=== PATIENT | female | born 1990 | race Caucasian/White ===

== ENCOUNTER 2017-07-31 14:25 | Day surgery (SDC) | payer BC ==
[~2017-07-31 14:25] MED LIST: CEFAZOLIN 2 GM/D5W RTU 2 GM/50 ML RTUPB IV PRN
[2017-07-31 14:40] LABS: APPEARANCE,URINE CLOUDY; BILIRUBIN,URINE NEGATIVE (NEGATIVE); GLUCOSE, URINE NEGATIVE (NEGATIVE); KETONES,URINE NEGATIVE (NEGATIVE); LEUKOCYTE ESTERASE,URINE NEGATIVE (NEGATIVE); NITRITE,URINE NEGATIVE (NEGATIVE); PROTEIN,URINE 30 mg/dL (NEGATIVE); URINE SPECIFIC GRAVITY 1.025; UROBILINOGEN,URINE NEGATIVE mg/dL (<2.0)
[2017-07-31 15:30] LABS: HEMATOCRIT 37.3 % (36.0-47.0); HEMOGLOBIN 12.9 g/dL (12.0-15.5); HGB HCT DIFFERENCE 1.4; MEAN CORPUSCULAR HEMOGLOBIN 28.8 pg (27.0-33.4); MEAN CORPUSCULAR HGB CONC 34.5 g/dL (32.0-36.0); MEAN CORPUSCULAR VOLUME 84 fl (80-97); RED BLOOD COUNT 4.47 10^6/uL (3.72-5.28); RED CELL DISTRIBUTION WIDTH 13.6 % (11.5-14.0); WHITE BLOOD COUNT 5.5 10^3/uL (4.0-10.5)
[2017-07-31 16:03] LABS: ANION GAP 13 (5-19); BLOOD UREA NITROGEN 10 mg/dL (7-20); CALCIUM 9.3 mg/dL (8.4-10.2); CARBON DIOXIDE 23 mmol/L (22-30); CHLORIDE 109 mmol/L (98-107); CREATININE RESULT 0.66 mg/dL (0.52-1.25); GLUCOSE 80 mg/dL (75-110); SODIUM 145.3 mmol/L (137-145)
[2017-07-31] MEDS ORDERED: ONDANSETRON HCL INJ/PF 4 MG/2 ML SDV ONE (16:04)
[2017-07-31] MEDS ORDERED: FENTANYL CITRATE INJ/PF 100 MCG/2 ML AMPUL ONE (16:04)
[2017-07-31] MEDS ORDERED: IBUPROFEN INJ 800 MG/8 ML VIAL IV ONE (16:04)
[2017-07-31] MEDS ORDERED: PROPOFOL INJ 200 MG/20 ML VIAL IV ONE (16:04)
[2017-07-31] MEDS ORDERED: HYDROMORPHONE HCL INJ/PF 2 MG/ML AMPULE ONE (16:04)
[2017-07-31] MEDS ORDERED: MIDAZOLAM 2 MG/2 ML INJ ONE (16:12)
[2017-07-31] MEDS ORDERED: FENTANYL CITRATE INJ/PF 100 MCG/2 ML AMPUL IV PRN ×3 (16:53)
[2017-07-31] MEDS ORDERED: PROMETHAZINE HCL INJ 25 MG/1 ML VIAL IV PRN (16:53)
[2017-07-31] MEDS ORDERED: MEPERIDINE HCL/PF INJ 25 MG/1 ML DISP.SYRIN IV PRN (16:53)
[2017-07-31] MEDS ORDERED: DIPHENHYDRAMINE HCL 50 MG/ML VIAL IV PRN (16:53)
[2017-07-31] MEDS ORDERED: BUPIVACAINE HCL 0.5 % INJ/PF 30 ML SDV ONE (17:06)
[2017-07-31] MEDS ORDERED: ONDANSETRON HCL INJ/PF 4 MG/2 ML SDV IV PRN (17:28)
[2017-07-31] MEDS ORDERED: OXYCODONE-ACETAMINOPHEN 5-325 MG TABLET PO PRN (17:28)
--- NOTE | 2017-07-31 17:28 | Operative Report ---
Operative Report DATE OF SURGERY: 07/31/17 PREOPERATIVE DIAGNOSIS: LEFT thumb intra-articular phalanx fracture POSTOPERATIVE DIAGNOSIS: LEFT thumb intra-articular phalanx fracture OPERATION: Closed reduction percutaneous pinning LEFT thumb intra-articular phalanx fracture SURGEON: TRE BEYER ANESTHESIA: GA COMPLICATIONS: None ESTIMATED BLOOD LOSS: Minimal PROCEDURE: Indication for above procedure: 26-year-old female who injured her left thumb when he got a great when he got caught on her horses rope. It caused a twisting injury. Patient notable pain and swelling at the time. She was seen at the emergency room where x-rays demonstrated a fracture. Upon follow-up with me repeat radiographs which demonstrated intra-articular proximal phalanx fracture. Given diastases and alignment I recommended operative intervention. Risks and benefits were explained to the patient of both operative and nonoperative intervention. After discussing the risks and benefits the joint decision was made to proceed with operative treatment. Procedure In Detail: Patient was seen and evaluated in the preoperative holding area. The LEFT upper extremity was initialized and marked. Patient received 2g of Ancef IV for bacterial prophylaxis. Patient was taken back to the operative room where transferred to the operative table and placed under general anesthesia. Once they were adequately anesthetized a nonsterile tourniquet was placed on the upper extremity. A surgical team debriefing was performed ensuring all instrumentation was available, the surgical procedure was discussed with possible concerns reviewed. The upper extremity was prepped with chlorhexidine and alcohol and draped in a sterile fashion. A timeout was done identifying correct patient, procedure and extremity everyone in attendance agree with this and verbalized no concerns. The extremity was exsanguinated the tourniquet was inflated to 250 mmHg. Reduction was performed utilizing a tenaculum. Once adequate reduction was obtained a 0.034 K wire was placed into the fragment which was the volar ulnar corner of the distal aspect of the proximal phalanx. I confirmed that was within the fracture segment by using a K wire as a joystick. Once I got adequate reduction this was secured into the far cortex. There is quaker of the alignment no evidence of intra-articular step-off. To further provide stability to the fragment I then placed a 0.045 K wire transarticular along the DIP joint which controlled radial and ulnar angulation provide further stability to the fracture fragment. The K wires were then cut below the skin. Multiple C arm views were obtained confirming adequate reduction of the fracture and no instability. A digital block was performed utilizing 10 cc of 0.5% Marcaine without epinephrine. Pin sites were covered with Xeroform and 4 x 4's patient was placed in a plaster splint anterior and posterior to provide further stability. Sponge counts, instrument counts, needle counts counts were correct. Patient was then awoken from anesthesia. Transferred from the operating room table to the operating room stretcher. There was no intraoperative complications patient tolerated procedure well stable to PACU. Postoperative plan: Patient will be set up for occupational therapy to be fitted for a thermoplastic splint stability at the DIP joint leaving the MP joint free. She will follow-up with me in 2 weeks we will obtain radiographs at that time. Plan will be removal of the transarticular pin at 4 weeks and then remove of fragment in 6 weeks.
[2017-07-31] MEDS ORDERED: PROMETHAZINE HCL INJ 25 MG/1 ML VIAL ONE (18:05)
[2017-07-31 20:00] VITALS: BP 133/76
--- NOTE | 2017-08-03 07:15 | PDOC DISCHARGE SUMMARY ---
Discharge Summary (SDC) - Discharge Final Diagnosis: Left thumb proximal phalanx fracture Date of Surgery: 07/31/17 Discharge Date: 07/31/17 Condition: Good Treatment or Instructions: Schedule Follow Up w/ Dr. Man Bueno @ [facility] to be seen in 10-14 days or as scheduled [place]: [place]: [place]: Ice and elevate Keep splint clean/dry/intact. If your fingers become numb please unwrap the Wilfredo wrap but leave the splint in place, if the sensation does not return within 30 minutes please return to the emergency department. May begin finger range of motion attempting to make full fist. Please use ibuprofen (Motrin or Advil) 600-800 mg every 8 hours as needed for pain or fever. You may also use acetaminophen (Tylenol) 1000 mg every 4-6 hours as needed for pain or fever. Please be aware that many medications contain acetaminophen, do not exceed a total of 1000 mg of acetaminophen every 6 hours. If ibuprofen and acetaminophen are not sufficient for your pain you may take the Percocet. Please be aware that the Percocet does contain Tylenol. Stool softener of choice when on pain medication. Prescriptions: Oxycodone HCl/Acetaminophen [Percocet 5-325 mg Tablet] 1 - 2 tab PO ASDIR PRN # 45 tablet PRN Reason: Discharge Diet: As Tolerated Respiratory Treatments at Home: Deep Breathing/Coughing, Incentive Spirometer Discharge Activity: No Lifting Over 10 Pounds, No Lifting/Push/Pulling Report the Following to Your Physician Immediately: Fever over 101 Degrees, Unusual Bleeding, Redness, Swelling, Warmth, Increased Soreness
--- NOTE | 2017-08-03 15:35 | RADIOLOGY REPORT (SQ) ---
EXAM DESCRIPTION: NO CHG FLUORO; FINGER LEFT COMPLETED DATE/TIME: 08/03/2017 3:21 pm; 08/03/2017 3:22 pm REASON FOR STUDY: CR PERC PINNING LT THUMB S62.512A DISP FX OF PROXIMAL PHALANX OF LEFT THUMB, INIT FOR COMPARISON: None. FLUOROSCOPY TIME: Less than one hour. 1 minutes 2 seconds LIMITATIONS: None. PROCEDURE: Fluoroscopy was provided for intraprocedural guidance. No images were stored in the PACS system. IMPRESSION: Intraprocedural fluoroscopy was provided. No images were stored in the PACS system. Please Correlate with the procedure report. COMMENT: Quality ID 145: Final reports for procedures using fluoroscopy that document radiation exp osure indices, or exposure time and number of fluorographic images (if radiation exposure indices are not available) TECHNICAL DOCUMENTATION: JOB ID: [id number] [employer]- All Rights Reserved
--- NOTE | 2017-08-03 15:35 | RADIOLOGY REPORT (SQ) ---
EXAM DESCRIPTION: NO CHG FLUORO; FINGER LEFT COMPLETED DATE/TIME: 08/03/2017 3:21 pm; 08/03/2017 3:22 pm REASON FOR STUDY: CR PERC PINNING LT THUMB S62.512A DISP FX OF PROXIMAL PHALANX OF LEFT THUMB, INIT FOR COMPARISON: None. FLUOROSCOPY TIME: Less than one hour. 1 minutes 2 seconds LIMITATIONS: None. PROCEDURE: Fluoroscopy was provided for intraprocedural guidance. No images were stored in the PACS system. IMPRESSION: Intraprocedural fluoroscopy was provided. No images were stored in the PACS system. Please Correlate with the procedure report. COMMENT: Quality ID 145: Final reports for procedures using fluoroscopy that document radiation exp osure indices, or exposure time and number of fluorographic images (if radiation exposure indices are not available) TECHNICAL DOCUMENTATION: JOB ID: [id number] [employer]- All Rights Reserved
== END 2017-07-31 19:50 | disposition home or self-care (01) ==
LOC: OROUT 14:25
PROVIDERS: ATTEND Orthopaedic Surgery
PROC: 0PSS34Z Reposition Left Thumb Phalanx with Internal Fixation Device, Percutaneous Approach (ICD-10-PCS; principal; 2017-07-31 16:00)
DX: S62.512A Displaced fracture of proximal phalanx of left thumb, initial encounter for closed fracture (principal); X58.XXXA Exposure to other specified factors, initial encounter; Y93.52 Activity, horseback riding; M79.644 Pain in right finger(s); E66.9 Obesity, unspecified; Z68.34 Body mass index [BMI] 34.0-34.9, adult
CPT/HCPCS: 36415; 85027; 81025; 80048; 81001; 73140; 26727; C1713; J2250; J1170; J2550; J2405; J2704; J0690; J1741; 01820; J3010